=== PATIENT | female | born 2005 | race Caucasian/White ===

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

== ENCOUNTER 2025-03-15 10:08 | Emergency (ER) | payer OTHER, SELFPAY ==
--- NOTE | 2025-03-15 10:16 | ED.FEMALEGU ---
HPI - Female Genitourinary General Chief complaint: Urogenital-Female Stated complaint: itchy in private area Time Seen by Provider: 03/15/25 11:10 Source: patient Mode of arrival: ambulatory Limitations: no limitations History of Present Illness HPI Narrative: Rosalie is a 19-year-old female patient presenting to the clinic today with complaints of vaginal itching x 2 weeks. She reports she has had this before and has used vaginal suppository for yeast. States she does not like the suppositories and prefers oral medications. No changes in soaps, shampoos, lotions, detergents in the genital area. No concern for STIs. She does have some vaginal discharge but it is normal for her. No vaginal odor. Denies any back pain or abdominal pain. No urinary symptoms. No history of bacterial vaginosis. Related Data Allergies Allergy/AdvReac Type Severity Reaction Status Date / Time No Known Allergies Allergy Verified 03/15/25 10:56 Review of Systems Review of Systems: Pertinent positives per HPI. Patient denies any fever, chills, rash, headache, visual changes, dizziness, cough, runny nose, sore throat, shortness of breath, chest pain, palpitations, nausea, vomiting, diarrhea, constipation, abdominal pain, or any urinary issues. [facility] Past Medical History Medical History PTSD (post-traumatic stress disorder) Anxiety Depression Surgical History Surgical History [place] teeth removed Family History Family History Father Suicide Hypertension Sibling Depression Grandparent Diabetes mellitus Hypertension Grandparent Depression Heart disease Social History Social History Smoking status: Never smoker Alcohol intake: never Substance use: never Do You Feel Safe in your Home?: Yes Lack of Transportation: No Lack of Food: Never True Current Housing: I Have Housing Concerned About Future Housing: No Difficulty Paying Gas/Electric Bills: No Difficulty Paying for Meds: No Currently Unemployed: No Education: High School Diploma/GED Difficulty w/ Childcare or Family Care: No Living arrangements: with family Occupation/Education: student Additional occupation/education comments: [employer] Gender identity (if verbalized by the patient): Female Sexual Orientation (if Verbalized by the Patient): Straight or Heterosexual Agree to blood products: Yes Comments At the time of my signature, I reviewed and agree with the nursing past medical, surgical, social, and family history. There is no relevant family history pertinent to the patient complaint. Exam Narrative: General: Well-developed, well nourished, in no apparent distress. Head: Normocephalic, atraumatic. Cardio: Regular rate and rhythm, s1 and s2 normal, no murmur appreciated. Resp: Clear to auscultation bilaterally, no rhonchi, rales, wheezing or rubs. Abdomen: Soft, pliable, bowel sounds present in all quadrants, non-tender to palpation, no organomegly, no CVAT tenderness. : Deferred-patient declined exam Course Course Emergency Course: Portions of this record may have been created with voice recognition software. Level of Care: Express Care Visit Vital Signs Vital signs: Vital signs reviewed MDM - Female Genitourinary MDM Narrative Medical decision making narrative: At the time of visit patient is resting comfortably on the exam table. Patient appears to be nontoxic. Plan: I suspect patient likely has a vaginal yeast infection. She reports that the vaginal os is excoriated and itchy. Will send in prescription for Diflucan and recommend using [id number] Monistat or Vagisil for symptoms. Supportive measures were discussed with the patient and they voiced understanding discharge instructions and agrees to treatment plan. Return precautions reviewed Differential Diagnosis Differential diagnosis: Likely urinary tract infection, bacterial vaginosis, trichomoniasis, cervicitis, ovarian cyst, vaginitis, ruptured ovarian cyst, cyst of Bartholin's gland, cystitis and dysmenorrhea Discharge Plan Discharge Clinical Impression: Vaginal yeast infection Patient Disposition: Home Condition: Stable Instructions: Antibiotic Form, Yeast Infection (ED) Additional Instructions: Take Diflucan as prescribed May use [id number]-gjieife Monistat or vagisil to the external vagina to help alleviate itching May apply a tucks pad to the area to help alleviate itching May take Tylenol/Motrin as needed for pain Follow-up with your PCP your OBGYN if symptoms persist Patient Language: Mohawk Prescriptions: New fluconazole 150 mg tablet 150 mg PO ONCE Qty: 2 0RF Rx Instructions: as a single dose. May repeat in 72 hours if needed. No Action Lo Loestrin Fe 1 mg-10 mcg (24)/10 mcg (2) tablet 1 tablet PO DAILY Qty: 84 4RF venlafaxine 37.5 mg capsule,extended release 24hr 37.5 mg PO DAILY Qty: 90 3RF methylphenidate HCl 40 mg capsule, ER biphasic 30-70 40 mg PO DAILY Qty: 30 0RF Follow-up/Referrals: Marga Madden APRN [Primary Care Provider] - Time of Disposition: 11:12 Quality NIHSS Nursing Documentation ED NIHSS nursing documentation: reviewed/agree
[2025-03-15 10:35] VITALS: BP 109/66; PULSE 89; RESP 12; TEMP 36.5; O2SAT 99
== END 2025-03-15 11:17 | disposition home or self-care (01) ==
PROVIDERS: Emergency Provider Nurse Practitioner Family; PCP Nurse Practitioner Adult Health
DX: B37.31 Acute candidiasis of vulva and vagina (principal); F41.9 Anxiety disorder, unspecified; F32.A Depression, unspecified
CPT/HCPCS: 99213; G0463

== ENCOUNTER 2025-08-08 17:48 | Emergency (ER) | payer OTHER, SELFPAY ==
--- NOTE | ~2025-08-08 | XR_ITS ---
EXAMINATION: XR chest 2V DATE: 08/08/2025 18:17 INDICATION: Cough. TECHNIQUE: Frontal and lateral views of the chest were obtained. COMPARISON: None. FINDINGS: Heart size is normal. Lungs are free of acute processes. Jessica and mediastinum are normal. IMPRESSION: 1. No acute findings. Reviewed, dictated and finalized at location [facility] IMPRESSION: 1. No acute findings.
[2025-08-08 17:57] VITALS: BP 105/60; PULSE 85; RESP 16; TEMP 36.9; O2SAT 100
--- NOTE | 2025-08-08 17:59 | ED.GENADULT ---
HPI - General Adult General Chief complaint: Upper Respiratory Infection Stated complaint: Sinus Time Seen by Provider: 08/08/25 17:59 Source: patient, RN notes reviewed and old records reviewed Mode of arrival: ambulatory Limitations: no limitations History of Present Illness HPI narrative: 19-year-old female presents to the [facility] with her mom. Patient reports 9 day history of cough, sore throat, eye redness, ear pain and a stuffy nose. Had been taking ibuprofen mom reports concern for pneumonia. Had pneumonia last year with similar symptoms. Onset (ago): day(s) (9) Treatments prior to arrival: NSAID Related Data Allergies Allergy/AdvReac Type Severity Reaction Status Date / Time No Known Allergies Allergy Verified 08/08/25 17:55 Review of Systems Review of Systems: All systems reviewed & are unremarkable except as noted in HPI and below Constitutional: Constitutional: Reports no additional constitutional complaints ENT: Reports as per HPI Cardiovascular: Cardiovascular: Reports no additional cardiovascular complaints, Denies chest pain and Denies dyspnea Respiratory: Respiratory: Reports as per HPI, Denies chest congestion, Reports cough and Denies dyspnea Musculoskeletal: Musculoskeletal: Reports no additional musculoskeletal complaints Integumentary/Breasts: Skin/Breast: Reports system reviewed and no additional complaints, except as docu PMF[facility] Past Medical History Medical History PTSD (post-traumatic stress disorder) Anxiety Depression Surgical History Surgical History [place] teeth removed Family History Family History Father Suicide Hypertension Sibling Depression Grandparent Diabetes mellitus Hypertension Grandparent Depression Heart disease Social History Social History Smoking status: Never smoker Alcohol intake: never Substance use: never Do You Feel Safe in your Home?: Yes Lack of Transportation: No Lack of Food: Never True Current Housing: I Have Housing Concerned About Future Housing: No Difficulty Paying Gas/Electric Bills: No Difficulty Paying for Meds: No Currently Unemployed: No Education: High School Diploma/GED Difficulty w/ Childcare or Family Care: No Living arrangements: with family Occupation/Education: student Additional occupation/education comments: [employer] Gender identity (if verbalized by the patient): Female Sexual Orientation (if Verbalized by the Patient): Straight or Heterosexual Agree to blood products: Yes Comments At the time of my signature, I reviewed and agree with the nursing past medical, surgical, social, and family history. There is no relevant family history pertinent to the patient complaint. Exam Const: General: cooperative, healthy appearing, comfortable, no acute distress, well developed, alert and well nourished Nutritional Appearance: well nourished Orientation/consciousness: patient oriented x3 Limitations: no limitations HENMT: Head: normal to inspection Ears: hearing grossly normal bilaterally, external ears normal, TM's normal bilaterally, EAC's normal, mastoids normal and no periauricular adenopathy Face and sinus: normal facial exam and face symmetric Mouth: Yes Normal oral and palatal mucosa present, Yes lip normal, Yes tongue normal and Yes moist mucous membranes Throat: posterior oropharynx normal, tonsils normal, uvula midline and no uvular edema Eyes: General: appearance normal, both eyes and all related structures Alignment and Position: alignment normal Neck: Neck: normal visual inspection, full ROM, no lymphadenopathy and no meningeal signs Chest: Chest palpation & inspection: normal inspection of the chest Resp: Effort & Inspection: normal respiratory effort and able to speak in complete sentences Auscultation: clear to auscultation bilaterally, no crackles, no rales, no rhonchi and no wheezes Cardio: Rate: regular rate Skin: General skin exam: normal color and no rashes or lesions noted Neuro: General: patient oriented x3, gait normal, moves all extremities and no meningeal signs Cognition (Neuro): normal cognition Speech: normal speech Gait exam (Neuro): Normal gait present Extrem: General: normal to inspection, full ROM, capillary refill normal and normal gait Psych: Appearance: grossly normal and well kempt Mental Status: mental status grossly normal Speech and movement: Normal speech and movement present and Clear speech present Affect: normal affect Attitude: cooperative Course Course Level of Care: Express Care Visit Vital Signs Vital signs: Vital Signs Temperature 98.4 F 08/08/25 17:57 Pulse Rate 85 08/08/25 17:57 Respiratory Rate 16 08/08/25 17:57 Blood Pressure 105/60 08/08/25 17:57 Pulse Oximetry 100 08/08/25 17:57 Oxygen Delivery Room Air 11/21/25 17:57 Temperature 98.4 F 08/08/25 17:57 Pulse Rate 85 08/08/25 17:57 Respiratory Rate 16 08/08/25 17:57 Blood Pressure 105/60 08/08/25 17:57 Pulse Oximetry 100 08/08/25 17:57 Oxygen Delivery Room Air 08/08/25 17:57 Reviewed Medical Decision Making MDM Narrative Medical decision making narrative: Patient sitting comfortably in exam room. Patient is nontoxic, vitals stable. Patient presents 9 day history of URI symptoms. Patient strep negative, chest x-ray showed no acute findings. Will treat for sinusitis with doxycycline but encouraged [id number] treatment as well. Patient is appropriate for outpatient treatment with close follow-up Discharge instructions reviewed with patient, as well as provided in writing per nursing staff. The instructions also include specific and strict return/GO TO THE ER as well as f/u information. All questions have been answered, and the patient deny any further questions with discharge and discharge plan. Some parts of this dictation were generated by voice recognition software and may contain typographical and/or grammatical inaccuracies. Differential Diagnosis Differential Diagnosis: sinusitis, strep, flu, COVID, pneumonia, bronchitis Medical Records Medical records reviewed: Yes I reviewed the external patient's medical records. Vital Signs Vital Signs: Vital Signs Temperature 98.4 F 08/08/25 17:57 Pulse Rate 85 08/08/25 17:57 Respiratory Rate 16 08/08/25 17:57 Blood Pressure 105/60 08/08/25 17:57 Pulse Oximetry 100 08/08/25 17:57 Oxygen Delivery Room Air 08/08/25 17:57 Temperature 98.4 F 08/08/25 17:57 Pulse Rate 85 08/08/25 17:57 Respiratory Rate 16 08/08/25 17:57 Blood Pressure 105/60 08/08/25 17:57 Pulse Oximetry 100 08/08/25 17:57 Oxygen Delivery Room Air 08/08/25 17:57 Reviewed Lab Data Lab results reviewed: Yes I reviewed the patient's lab results. Labs: Reviewed Imaging Data Radiologist's impression: EXAMINATION: XR chest 2V DATE: 08/08/2025 18:17 INDICATION: Cough. TECHNIQUE: Frontal and lateral views of the chest were obtained. COMPARISON: None. FINDINGS: Heart size is normal. Lungs are free of acute processes. Jessica and mediastinum are normal. IMPRESSION: 1. No acute findings. Critical Care Time Critical Care Time Critical Care Time: No Discharge Plan Discharge Clinical Impression: Sinusitis Qualifiers: Sinusitis location: unspecified location Chronicity: acute Recurrence: not specified as recurrent Qualified Code(s): J01.90 - Acute sinusitis, unspecified Patient Disposition: Home Condition: Stable Instructions: Antibiotic Form, Sinusitis (ED) Additional Instructions: Your rapid strep swab was negative today at [facility]. A throat culture will be sent to the laboratory for further testing. If the test is positive, you will receive a phone call within 48 hours and an appropriate antibiotic will be initiated at that time. It is very important to treat your symptoms. Drink plenty of water, Gatorade, Pedialyte, ice pops or Jell-O. -Alternate Tylenol and Motrin per package directions for fever or pain. You can alternate every 4 hours -Antihistamine medication such as Zyrtec/Claritin/Myrna during the day can help improve symptoms. -doing daily nasal irrigations can help relieve pressure your sinuses. Things like a Neti pot -Use Flonase twice a day for 5 days then daily to help reduce the inflammation and dry up your sinuses. -You can also use Mucinex. Be sure to drink plenty of water with this medication at least 8 ounces with every dose and it is important to drink 8 to 10 glasses of water per day. Water is a natural decongestant -Eat and drink things that are easy to swallow, like tea or soup, or popsicles. -Oral rinses such as: Salt water gargles and/or may use topical anesthetic (eg. Chloraseptic spray) or lozenges to relieve dryness or throat pain). -Frequent hand washing or hand fish net maker is one of the best ways to prevent spread of infection. -Using a vaporizer or humidifier at night will also help thin secretions and help with coughing up phlegm. -Follow up with primary care provider in 7-10 days if condition is not improving - For new or worsening symptoms go directly to the nearest ER Patient Language: Estonian Prescriptions: New doxycycline monohydrate 100 mg tablet 100 mg PO BID Qty: 14 0RF No Action Lo Loestrin Fe 1 mg-10 mcg (24)/10 mcg (2) tablet 1 tablet PO DAILY Qty: 84 4RF methylphenidate HCl 40 mg capsule, ER biphasic 30-70 40 mg PO DAILY Qty: 30 0RF venlafaxine 37.5 mg capsule,extended release 24hr 37.5 mg PO DAILY Qty: 90 3RF Follow-up/Referrals: Marga Madden APRN [Primary Care Provider, [facility]] Time of Disposition: 18:28
[2025-08-11 11:48] LABS: EDSTREPNEGPOS1 Negative (Negative)
== END 2025-08-08 18:36 | disposition home or self-care (01) ==
PROVIDERS: Emergency Provider Nurse Practitioner; PCP Nurse Practitioner Adult Health
DX: J01.90 Acute sinusitis, unspecified (principal); F41.9 Anxiety disorder, unspecified; F32.A Depression, unspecified
CPT/HCPCS: 71046; 87081; 87880; 99213; G0463